=== PATIENT | male | born 1965 | race Caucasian/White ===

== ENCOUNTER 2016-05-03 12:14 | Emergency (ER) | payer OTHER ==
--- NOTE | 2016-05-03 15:12 | RAD ---
FOOT RIGHT 3 VIEWS COMPARISON: None HISTORY: Patient tripped over 72 weeks ago, with persistent pain in the right foot. Initial encounter. FINDINGS: Views: Right foot dorsoplantar, medial oblique, lateral. Bones: Normal. Joints: Normal. Soft tissues: Normal. IMPRESSION: Normal study. No fracture.
--- NOTE | 2016-05-03 15:12 | RAD ---
ANKLE-RIGHT 3 VIEW COMPARISON: None HISTORY: Right ankle pain that started 2 weeks ago due to an injury twisted his ankle. Initial encounter. FINDINGS Views: Right ankle AP, mortise, lateral. Bones: Normal variant of a large posterior process of the talus, without fracture. Joints: Normal Soft tissues: Moderate lateral soft tissue swelling. IMPRESSION: 1. Lateral soft tissue swelling. No fracture.
== END 2016-05-03 17:04 | disposition left against medical advice (07) ==
LOC: ED 12:14
DX: L03.115 Cellulitis of right lower limb (principal)

== ENCOUNTER 2016-05-11 18:40 | Inpatient (IN) | payer OTHER ==
[2016-05-11] MEDS ORDERED: SODIUM CHLORIDE 0.9% 1,000 ML ONE ×2 (20:30→21:51)
[2016-05-11 20:32] LABS: ABSOLUTE NEUTROPHIL COUNT 23.2 K/mm3 (1.8-7.7); BASO # 0.1 K/mm3 (0.0-0.2); BASO % 0.3 % (0.2-1.0); HEMOGLOBIN 13.1 gm/l (14.0-18.0); IMM NEUT # 0.3 K/mm3 (0-0.2); LYMPH # 1.6 (1.0-4.8); LYMPH % 5.9 % (15-45); MEAN CELL VOLUME 93.9 fl (80.0-94.0); MEAN CORPUSCULAR HEMOGLOBIN 30.8 pg (27.0-31.0); MEAN CORPUSCULAR HGB CONC 32.8 g/dl (33.0-37.0); MEAN PLATELET VOLUME 10.1 fl (7.4-10.4); MONO # 1.6 (0.0-0.8); NEUT % 86.8 % (43-75); PLATELET COUNT 506 K/mm3 (130-400); RED CELL DISTRIBUTION WIDTH 12.5 % (11.5-14.5)
[2016-05-11] MEDS ORDERED: PIPERACILLIN-TAZO PREMIX BAG 50 ML IV ONE (20:33)
[2016-05-11] MEDS ORDERED: TETANUS,DIPHTHERIA TOXOID SYRINGE IM V ONE (20:33)
[2016-05-11] MEDS ORDERED: INSULIN REGULAR HUMAN (DOSE) 100 UNITS/1 ML ONE ×2 (20:33→21:52)
[2016-05-11 20:50] LABS: ALB/GLOB RATIO 0.5 (>1.0); ALBUMIN 2.5 gm/dL (3.5-5.7); CALCIUM 9.1 mg/dL (8.6-10.3)
[2016-05-11 21:06] LABS: C-REACTIVE PROTEIN 12.1 mg/dl (<1.0)
[2016-05-11] MEDS ORDERED: VANCOMYCIN HCL 2 G in SODIUM CHLORIDE 0.9% 500 ML IV ONE (21:15)
[2016-05-11 21:34] LABS: ACETONE,SERUM NEGATIVE (NEGATIVE)
--- NOTE | 2016-05-11 21:37 | RAD ---
Name: SHAILESH DUNCAN Exam: Right foot Comparison: 05/03/2016 Clinical history: Right foot infection Findings: 3 views right foot are submitted. There is posttraumatic deformity of the proximal phalanx of the right great toe similar to the prior. There is no acute fracture, dislocation, periosteal fracture foreign body. There is mild calcaneal spurring at the insertion site of plantar fascia. There is diffuse swelling of the foot particularly on the plantar surface but to a lesser extent over the dorsum of the foot. The soft tissue swelling has progressed from the prior exam. Impression: 1. Diffuse soft tissue swelling in foot with worsening from exam dated 05/03/2016 2. Old fracture of the right great toe 3. No new/acute bony abnormality
[2016-05-11 22:15] LABS: URINE BILIRUBIN NEGATIVE (NEGATIVE); URINE BLOOD NEGATIVE (NEGATIVE); URINE COLOR LIGHT YELLOW; URINE GLUCOSE (UA) 3+ (NEGATIVE); URINE LEUKOCYTE ESTERASE NEGATIVE (NEGATIVE); URINE NITRITE NEGATIVE (NEGATIVE); URINE PROTEIN NEGATIVE (NEGATIVE); URINE UROBILINOGEN NORMAL (0-1 mg/dl)
[2016-05-11 22:16] LABS: URINE APPEARANCE CLEAR
[2016-05-11 22:20] LABS: ATYPICAL LYMPHOCYTE 2 %; BAND 5 % (0-10); BASOPHIL 0 % (0-1); EOSINOPHIL 0 % (1-3); LYMPHOCYTE 4 % (15-45); MONOCYTE 2 % (4-12); NEUTROPHILS 87 % (43-75); TOTAL CELLS COUNTED 100
[2016-05-11 22:21] LABS: PLATELET ESTIMATE INCREASED (NORMAL)
[2016-05-11] MEDS ORDERED: MAGNESIUM HYDROXIDE 30 ML UDCUP PO PRN (22:39)
[2016-05-11] MEDS ORDERED: BISACODYL 10 MG SUP PR PRN (22:39)
[2016-05-11] MEDS ORDERED: BISACODYL 5 MG TABLET.EC PO PRN (22:39)
[2016-05-11] MEDS ORDERED: ACETAMINOPHEN 325 MG TABLET PO PRN (22:39)
[2016-05-11] MEDS ORDERED: MENTHOL/CETYLPYRD 1 EACH LOZENGE PO PRN (22:39)
[2016-05-11] MEDS ORDERED: NS/Potassium Chlor 20 mEq 1,000 ML IV SCH (22:39)
[2016-05-11] MEDS ORDERED: INSULIN ASPART (DOSE) 100 UNITS/1 ML SUB-Q PRN (22:39)
[2016-05-11] MEDS ORDERED: BLISTEX LIPSTICK 1 EACH TP PRN (22:39)
[2016-05-11] MEDS ORDERED: INSULIN ASPART (DOSE) 100 UNITS/1 ML SUB-Q ONE ×2 (23:02→23:37)
[2016-05-12] MEDS ORDERED: NS/Potassium Chlor 20 mEq 1,000 ML IV SCH (00:18)
[2016-05-12 01:35] LABS: CALCIUM 8.3 mg/dL (8.6-10.3)
[2016-05-12] MEDS ORDERED: INSULIN ASPART (DOSE) 100 UNITS/1 ML SUB-Q ONE (01:41)
[2016-05-12] MEDS: POTASSIUM CHLORIDE 10MEQ/100ML 100 ML IV SCH ×2 (02:26→05:12)
[2016-05-12] MEDS: NS/Potassium Chlor 20 mEq 1,000 ML IV SCH ×3 (02:27→14:22)
[2016-05-12] MEDS ORDERED: PIPERACILLIN SODIUM/TAZOBACTAM 3.375 G VIAL IV ONE ×2 (03:06→04:54)
[2016-05-12] MEDS ORDERED: SODIUM CHLORIDE 0.9% 50 ML IV ONE (04:53)
[2016-05-12] MEDS ORDERED: SODIUM CHLORIDE 0.9% FLUSH 10 ML ONE (04:55)
[2016-05-12] MEDS ORDERED: IV START KIT ONE (04:56)
[2016-05-12] MEDS ORDERED: PUMP TUBING ONE (04:59)
[2016-05-12] MEDS: NS 0.9% IV SCH ×2 (05:23→12:08)
[2016-05-12] MEDS: PIPERACILLIN TAZO IV SCH ×2 (05:23→12:08)
[2016-05-12] MEDS: SODIUM CHLORIDE 0.9% 100 ML IV PRN ×2 (05:25→19:09)
[2016-05-12] MEDS ORDERED: HYDROMORPHONE HCL 0.5 MG/0.5 ML SYRINGE IV PRN ×2 (05:40→07:41)
[2016-05-12] MEDS: PIPERACILLIN-TAZO PREMIX BAG 3.375 G in Premix (D5W) 50 ml 1 EACH IV SCH ×3 (05:42→19:06)
[2016-05-12] MEDS ORDERED: INSULIN ASPART (DOSE) 100 UNITS/1 ML SUB-Q SCH ×2 (06:00→12:00)
[2016-05-12] MEDS ORDERED: LACTATED RINGERS 1,000 ML ONE ×2 (07:19→10:49)
[2016-05-12] MEDS ORDERED: PRIMARY W/MICRODRIP 60 DROPS/ML ONE (07:20)
[2016-05-12 07:24] LABS: ABSOLUTE NEUTROPHIL COUNT 19.5 K/mm3 (1.8-7.7); BASO # 0.1 K/mm3 (0.0-0.2); BASO % 0.5 % (0.2-1.0); EOS # 0.2 (0.0-0.5); EOS % 0.7 % (0.9-2.9); HEMATOCRIT 34.6 % (32.0-52.0); HEMOGLOBIN 11.8 gm/l (14.0-18.0); IMM NEUT # 0.2 K/mm3 (0-0.2); IMM NEUT% 0.7 % (0-1); LYMPH # 2.6 (1.0-4.8); LYMPH % 10.5 % (15-45); MEAN CELL VOLUME 90.3 fl (80.0-94.0); MEAN CORPUSCULAR HEMOGLOBIN 30.8 pg (27.0-31.0); MEAN CORPUSCULAR HGB CONC 34.1 g/dl (33.0-37.0); MEAN PLATELET VOLUME 9.5 fl (7.4-10.4); MONO # 1.7 (0.0-0.8); MONO % 6.9 % (4-12); NEUT % 80.7 % (43-75); PLATELET COUNT 441 K/mm3 (130-400); RED CELL DISTRIBUTION WIDTH 11.9 % (11.5-14.5)
[2016-05-12 07:34] LABS: CALCIUM 8.6 mg/dL (8.6-10.3); MAGNESIUM 1.7 mg/dL (1.9-2.7)
[2016-05-12] MEDS ORDERED: HYDROMORPHONE HCL 1 MG/ML SYRINGE IV PRN (07:42)
[2016-05-12 07:57] LABS: BAND 3 % (0-10); BASOPHIL 0 % (0-1); EOSINOPHIL 1 % (1-3); LYMPHOCYTE 12 % (15-45); MONOCYTE 2 % (4-12); NEUTROPHILS 82 % (43-75); PLATELET ESTIMATE INCREASED (NORMAL); TOTAL CELLS COUNTED 100
[2016-05-12] MEDS ORDERED: MAGNESIUM SULFATE 2 G/50 ML 2 G in Premix (Water) 50 ml 1 EACH IV ONE ×2 (08:15→12:30)
[2016-05-12] MEDS ORDERED: PROPOFOL 20 ML IV ONE (08:43)
[2016-05-12] MEDS ORDERED: SUCCINYLCHOLINE CHL 20 MG/ML DOSE ONE (08:43)
[2016-05-12] MEDS ORDERED: MIDAZOLAM HCL 1 MG/ML 2ML VIAL ONE (08:43)
[2016-05-12] MEDS ORDERED: FENTANYL 100 MCG/2 ML VIAL ONE ×3 (08:44→11:22)
--- NOTE | 2016-05-12 08:52 | HP ---
SHAILESH DUNCAN [id number] DATE OF ADMISSION: May 11, 2016 CHIEF COMPLAINT: Right foot infection. HISTORY OF PRESENT ILLNESS: The patient is a 50-year-old male who has not had any medical care for the last ten years, who presents to the [facility] Department with a two week history of worsening right foot infection. He has been reluctant to seek medical attention. He was first brought in on May 03, 2016, but left without being seen. His sisters convinced him to come in and coerced him to be evaluated by the emergency department today. He has had symptoms of polyuria and polydipsia going on for several years he states. The right foot infection started with a cracked skin from a callus at the base of the first metatarsal. He developed redness, ulcerations and vesicle formation over the bottom of the foot and redness which has progressed up past the ankle some time in the last week and a half. He has had low-grade fevers. REVIEW OF SYSTEMS: Is significant for low-grade fevers, but he denies any upper respiratory symptoms, cough, dyspnea, chest pain, shortness of breath, or palpitations. He denies complaints of nausea, vomiting, abdominal pain, diarrhea or constipation. He denies any significant pain in his foot despite the extensive infection. He has some chronic burning pain in both feet which has been ongoing for a while. He denies any headaches, fainting, blackouts or seizures. He has had the polyuria and polydipsia for several years. PAST MEDICAL HISTORY: He denies any chronic medical problems. He used to be a patient of Dr. Rouse. When he heard Dr. Rouse was retiring about ten years ago, he stopped going to him and has not seen a doctor since. He was not aware that Dr. Rouse never retired. PAST SURGICAL HISTORY: Significant for: 1. A right inguinal hernia repair at the age of 10. 2. 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 This occurred about four or five years ago he states. 3. He denies any other surgical history. ALLERGIES: NO KNOWN DRUG ALLERGIES. CURRENT MEDICATIONS: None. FAMILY HISTORY: Both parents had diabetes and a brother had diabetes. SOCIAL HISTORY: He is . He has no children. He is living on food stamps and staying on property owned by his sister and maintains the property as compensation for allowing him to stay there. He has smoked about 1/4 to 1/2 pack of cigarettes since he was 10 equaling about a 20 pack-year history of smoking. He denies alcohol or illicit drug use. PHYSICAL EXAMINATION: VITAL SIGNS: Temperature is 98.5, pulse 109, blood pressure 152/101, respirations 20, oxygen saturations are 100% on room air. Body mass index is 25.3. Weight is 82.4 kilograms. GENERAL: This is a well-developed, well-nourished male in no acute distress. HEENT: Shows pupils equal, round and reactive to light. Extraocular movements are intact. Oropharynx shows dry oral mucosa with poor dentition. NECK: Is supple without lymphadenopathy or thyromegaly. CHEST: Lungs are clear to auscultation bilaterally. CARDIOVASCULAR: Exam reveals a regular tachycardia without a murmur. ABDOMEN: Soft, nontender, nondistended with positive bowel sounds. GENITOURINARY: Exam is deferred. RECTAL: Exam is deferred. EXTREMITIES: Show trace edema in the right foot with diffuse erythema involving the right foot progressing fpc up the lower leg with extensive bullous changes involving the bottom of the right foot and ulcerations present as well in numerous areas with necrotic tissue visible as well. No bone is exposed. No foul smell is noted. He has 2+ dorsalis pedis pulse on both feet. He has extensive callus formation on the bottom of both feet with some fissuring of the skin at the base of the right first metatarsophalangeal joint and on the left foot he has a fissure at the base of the left first distal phalanx. DIAGNOSTIC IMAGING STUDIES: Plain films show diffuse soft tissue swelling of the right foot, old fracture of the right first toe. No acute bony abnormality is seen. LABORATORY STUDIES: CBC with a white count elevated at 26,800, hemoglobin is 13.1, platelet count slightly elevated at 506,000, lactate is elevated at 3.1. Chemistry profile shows a sodium of 116, potassium 4.7, carbon dioxide 28, anion gap 14, BUN 28, creatinine is 1.3, glucose is 1128. Liver function tests are normal. Cardiac enzymes are negative. C-reactive protein elevated at 12.1. Erythrocyte sedimentation rate is elevated at 100. Urine shows 3+ glucose, no ketones, and is otherwise unremarkable. Serum acetone is negative. ASSESSMENT: 1. Patient has severe diabetic right foot infection likely polymicrobial with cellulitis extending up the leg. He meets criteria for severe sepsis with a lactic acidosis, severe leukocytosis, thrombocytosis, and tachycardia. 2. He has evidence of uncontrolled diabetes complicated by diabetic neuropathy with a component of pseudohyponatremia as well as some hyponatremia as well. PLAN: 1. He is admitted to the medical/surgical unit and received 10 units of IV insulin in the emergency department. I think I can correct him with subcutaneous insulin every two hours given the fact that he has a normal serum carbon dioxide and normal anion gap. 2. He will get NovoLog insulin every two hours following a moderate sliding scale until his blood sugar is less than 250. 3. He will be given saline with some potassium as I expect his potassium to drop with correction of his hyperglycemia. 4. I am going to get a followup basic metabolic panel four hours after the last and a lactate four hours after the last draw. 5. For his infection, he is going to be covered with Zosyn and vancomycin. 6. He has been made nothing by mouth after midnight. Dr. Naveen Bejarano has been consulted and anticipates taking him to the operating room the morning of May 12, 2016. 7. Venous thromboembolism risk is moderate but I am going to use mechanical measures for now for prophylaxis due to the anticipated surgery in the morning. 8. He will also be aggressively hydrated. 9. Further treatment and recommendations will depend on his hospital course.
--- NOTE | 2016-05-12 09:41 | CONS ---
SHAILESH DUNCAN : 1965 [id number] CONSULTATION DATE OF ADMISSION: May 11, 2016 CHIEF COMPLAINT: Right foot infection. HISTORY OF PRESENT ILLNESS: This is a 50-year-old male who has just presented to the emergency department with a new diagnosis of diabetes and a blood sugar of 1100 who has extensive necrotic tissue and infection over his right foot. He was admitted by the hospitalist service and orthopedics was consulted to evaluate and treat. Patient complains of some pain in his foot but really limited sensation and pain. He states that this has been going on for a long time and just has been getting worse and worse. He has no other previous episodes of similar complaints. He is not feeling particularly well at this point. He denies any discrete trauma to that foot. PAST MEDICAL HISTORY: As documented in the History and Physical performed by the hospitalist. PAST SURGICAL HISTORY: As documented in the History and Physical performed by the hospitalist. REVIEW OF SYSTEMS: His review of systems today is negative for any cardiovascular or respiratory complaints. PHYSICAL EXAMINATION: GENERAL: This is a somewhat ill appearing gentleman in no acute distress. He is awake, alert and conversant throughout the encounter. HEENT: He is normocephalic, atraumatic. His extraocular movements are intact. LUNGS: His lungs are inflating equally. EXTREMITIES: He has palpable pulses in his bilateral upper extremities. His right foot shows extensive areas of eschar, erythema and open wounds with some evidence of purulence including appearance of a couple of possible covered abscesses. There are no palpable pulses in the foot, but it is warm. He has erythema that advances about six inches up his leg toward the knee. He has minimal tenderness throughout this foot. There are just a couple of small areas that he seems to wince a little bit but largely does not appear to have particularly good protective sensation over the foot. DIAGNOSTIC IMAGING: A review of his x-rays shows no significant new fractures or dislocations. He has some posttraumatic arthrosis of his right great toe, previous fracture with a malunion at his interphalangeal joint on that great toe. He has extensive soft tissue swelling but no areas of bony destruction that would be suggestive of osteomyelitis or another process like that. ASSESSMENT: A 50-year-old gentleman with right foot soft tissue infection primarily with wildly uncontrolled diabetes that is now being addressed and significant amount of necrotic tissue. PLAN: Plan will be for just a simple debridement today with no plans for any bony resection. We need a chance to further evaluate whether this patient has appropriate vascularity and the ability to heal from resection or whether there is actually any deep involvement or if this is all just relatively superficial. So we will do a debridement today and then start working on getting some vascular studies to evaluate for his ability to heal up from a more definitive procedure. In the meantime, he will be on IV antibiotics, and he will be seeing wound care with [facility] and hopefully this can be managed as an outpatient after his initial procedure.
[2016-05-12] MEDS ORDERED: ONDANSETRON 4 MG/2ML 2 ML VIAL IV PRN (10:07)
[2016-05-12] MEDS ORDERED: PROMETHAZINE HCL 25 MG/ML VIAL IM PRN (10:07)
[2016-05-12] MEDS ORDERED: NALOXONE HCL 0.4 MG/ML VIAL IV PRN (10:07)
[2016-05-12] MEDS ORDERED: ATROPINE SULFATE 0.4 MG/1 ML VIAL IV PRN (10:07)
[2016-05-12] MEDS ORDERED: MEPERIDINE 25 MG/ML SYRINGE IV PRN (10:07)
[2016-05-12] MEDS ORDERED: LACTATED RINGERS 1,000 ML IV SCH (10:15)
[2016-05-12] MEDS ORDERED: HYDROMORPHONE HCL 1 MG/ML SYRINGE ONE (11:01)
--- NOTE | 2016-05-12 11:02 | PCMBPN ---
Brief Post Op Note: Date of Procedure: 05/12/16 Start Time: 1000 Preoperative Diagnosis: 1. right diabetic foot infection Postoperative Diagnosis: 1. Same Procedure: right foot irrigation and debridement Surgeon: Naveen Bejarano MD Assist: none Anesthesia: Zeny Everett Findings: multiple areas of necrotic tissue with multiple purulent abscesses; large full-thickness soft tissue loss around heel Condition: stable to PACU Complications: none IV Fluids: 1000 mLs of LR Urine Output: 0 mLs Estimated Blood Loss: 50 mLs Tourniquet Time: none Specimens: culture swabs from medial heel wound Implants: none Drains: none Naveen Bejarano MD
[2016-05-12] MEDS: FENTANYL 100 MCG/2 ML VIAL IV PRN ×3 (11:05→11:24)
[2016-05-12] MEDS: DOCUSATE SODIUM 100 MG CAPSULE PO SCH ×2 (11:09→21:26)
[2016-05-12] MEDS: HYDROMORPHONE HCL 1 MG/ML SYRINGE IV PRN ×2 (11:15→11:20)
[2016-05-12] MEDS: INSULIN ASPART (DOSE) 100 UNITS/1 ML SUB-Q SCH ×5 (12:28→21:29)
--- NOTE | 2016-05-12 12:34 | PDOC43 ---
- Subjective Chief Complaint: Right foot infection Waking up from surgery. Denies pain in right foot. Hungry and thirsty. - Objective Vital Signs Temperature 97.4 F 05/12/16 08:29 Pulse Rate 102 05/12/16 08:29 Respiratory Rate 20 05/12/16 08:29 Blood Pressure 135/87 05/12/16 08:29 O2 Saturation by Pulse Oximetry 97 05/12/16 08:29 Oxygen Delivery Method Room Air Oxygen Flow Rate 0 Intake and Output 05/11/16 05/12/16 05/13/16 06:59 06:59 06:59 Intake Total 1437 Output Total 1250 Balance 187 General: Alert, Cooperative, No Acute Distress HEENT: Mucous membr. moist/pink Lungs: Clear to Auscultation Bilaterally Cardiovascular: Regular Rate and Rhythm Abdomen: Soft, Normal Bowel Sounds, No Tenderness, No Masses Extremities: Normal Cap Refill, Normal Pulses, Other (Right calf and foot dressed and wraped with Eugene bandage.), No Edema Skin: Normal Color Neurological: Normal Speech Psych/Mental Status: Flat Affect Laboratory 05/12/16 07:05 05/12/16 07:05 05/12/16 05/12/16 05/12/16 11:51 11:00 07:05 RBC 3.83 L VBG Lactate Anion Gap BUN POC Capillary Glucose 197 H 207 H Calcium Magnesium 1.7 L 05/12/16 05/12/16 05/11/16 06:09 01:05 21:35 RBC VBG Lactate 3.1 H Anion Gap 6 L BUN 27 H POC Capillary Glucose 109 H Calcium 8.3 L Magnesium Current Medications: Current meds reviewed in EMR. - Problems: Assessment/Plan (1) Cellulitis Qualifiers: Site of cellulitis of extremity: lower extremity Laterality: right Status: Acute Assessment/Plan: Diabetic foot infection with cellulitis and lymphangitis present on admit, now post debriedment by Dr. Bejarano. Continue antibiotic treatment with Zosyn and Vancomycin. [place] for salvage of the foot is poor with likely future amputation anticipated. (2) Sepsis Status: Acute Assessment/Plan: With lactic acidosis and hyperglycemia secondary to foot infection and cellulitis. Improved, continue antibiotics as above. 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 Out of control with severe hyperglycemia and pseudohyponatremia but not acidosis on admit. Start basal and bolus insulin treatment, check A1c. RD consult for DM education. (4) Anemia Status: Acute Assessment/Plan: Mild on admit, worse with hydration, w/u for underlying cause. (5) Hypomagnesemia Status: Acute Assessment/Plan: Has been replaced, recheck in a.m. (6) Diabetic neuropathy Qualifiers: Diabetes mellitus type: type 2 Diabetes mellitus complication detail: diabetic polyneuropathy Qualifier Code: (E11.42) Type 2 diabetes mellitus with diabetic polyneuropathy Status: Chronic Assessment/Plan: Resulting in loss of sensation in feet allowing him to ignore the infection. (7) Nicotine dependence Qualifiers: Nicotine product type: cigarettes Status: Chronic Assessment/Plan: Declines nicotine replacement. VTE Prophylaxis: Start enoxaparin now that he is post-op.
[2016-05-12] MEDS: HYDROCODONE/ACETAMINOPHEN 5/325MG TABLET PO PRN (12:59)
[2016-05-12] MEDS: ENOXAPARIN SODIUM 40 MG/0.4 ML SYRINGE SUB-Q SCH (12:59)
[2016-05-12] MEDS ORDERED: VANCOMYCIN HCL 1 G in SODIUM CHLORIDE 0.9% 250 ML IV SCH (16:00)
[2016-05-12] MEDS ORDERED: VANCOMYCIN HCL 2 G in SODIUM CHLORIDE 0.9% 500 ML IV ONE (16:30)
--- NOTE | 2016-05-12 18:44 | PDOC43 ---
- Subjective Findings: Patient tolerated procedure well, readmitted to floor postop with hospitalist as primary. No new complaints, pain controlled. Subjective: Reports Pain Tolerable, Denies Chest Pain, Denies Shortness of Breath, Denies Nausea, Denies Vomiting, Denies Fever - Objective Vital Signs Temperature 97.4 F 05/12/16 11:40 Pulse Rate 101 05/12/16 16:00 Respiratory Rate 20 05/12/16 13:55 Blood Pressure 121/80 05/12/16 16:00 O2 Saturation by Pulse Oximetry 99 05/12/16 16:00 Oxygen Delivery Method Nasal Cannula Oxygen Flow Rate 2 Laboratory 05/12/16 07:05 05/12/16 07:05 05/12/16 05/12/16 05/12/16 16:20 11:51 11:00 RBC VBG Lactate Anion Gap BUN POC Capillary Glucose 223 H 197 H 207 H Calcium Magnesium 05/12/16 05/12/16 05/12/16 07:05 06:09 01:05 RBC 3.83 L VBG Lactate Anion Gap 6 L BUN 27 H POC Capillary Glucose 109 H Calcium 8.3 L Magnesium 1.7 L 05/11/16 21:35 RBC VBG Lactate 3.1 H Anion Gap BUN POC Capillary Glucose Calcium Magnesium Active Medication Orders Category Date Time Status Enoxaparin Sodium [Lovenox] Med 05/12/16 12:45 Active 40 mg SUB-Q Q24H Hydrocodone Bit/Acetaminophen [[place] 5/325] Med 05/11/16 22:39 Active 1 - 2 tab PO Q4H PRN Hydromorphone HCl [Dilaudid] Med 05/12/16 07:41 Active 0.5 - 1 mg IV Q2H PRN Hydromorphone HCl [Dilaudid] Med 05/12/16 07:42 Active 0.5 - 1 mg IV Q2H PRN Insulin Aspart (Dose) [Novolog (Dose)] Med 05/12/16 13:00 Active 5 units SUB-Q TIDWM Insulin Aspart (Dose) [Novolog (Dose)] Med 05/12/16 13:00 Active See Protocol SUB-Q WM/BEDTIME Insulin Glargine (Dose) [Lantus (Dose)] Med 05/12/16 21:00 Active 10 units SUB-Q Q24H Piperacillin-Tazo Premix Bag [Zosyn 3.375 G] 3.375 g Med 05/12/16 03:00 Active Premix (D5W) 50 ml 1 each IV Q6H Sodium Chloride 0.9% Flush [Normal Saline 10ml Flush] Med 05/12/16 01:00 Active 10 ml IV Q8HR Vancomycin HCl 1.5 g Med 05/13/16 04:30 Active Sodium Chloride 0.9% 500 ml IV Q12H Vancomycin HCl 2 g Med 05/12/16 16:30 Active Sodium Chloride 0.9% 500 ml IV X1 Intake and Output 05/10/16 05/11/16 05/12/16 23:59 23:59 23:59 Intake Total 1437 Output Total 1250 Balance 187 General: Afebrile HEENT: EOMI Lungs: Normal Air Movement Abdomen: Soft, No Tenderness Skin: Normal Color, Warm, Dry Neurological: Grossly Intact, Alert, Oriented x 4 - Right Lower Extremity Incision: Drainage Gross Sensation to Light Touch: Present: Deep Peroneal Nerve (decreased sensation globally about the foot) - Problems (1) Abscess of foot Status: Acute Assessment/Plan: DOS for I&D of right foot with multiple abscesses 1. Physical Therapy: NWB RLE 2. Pain Control: as prescribed by hospitalist 3. DVT Prophylaxis: per hospitalist 4. Disposition: will discuss with patient and hospitalist; would recommend vascular evaluation to determine the level at which patient could heal an amputation; no urgency for amputation, but patient has some social challenges which may affect timing of definitive care. 5. Medical Issues: newly diagnosed diabetes, control adequate on sliding scale insulin. Patient has not had significant medical care over last 7 years. Hospitalist primary. Naveen Bejarano MD
[2016-05-12] MEDS ORDERED: INSULIN GLARGINE (DOSE) 100 UNITS/ML UNIT SUB-Q SCH (21:00)
[2016-05-13] MEDS: PIPERACILLIN-TAZO PREMIX BAG 3.375 G in Premix (D5W) 50 ml 1 EACH IV SCH ×3 (00:03→11:25)
[2016-05-13] MEDS ORDERED: VANCOMYCIN HCL 1 G/20 ML VIAL ONE ×3 (01:19→04:12)
[2016-05-13] MEDS ORDERED: SODIUM CHLORIDE 0.9% 500 ML ONE (01:20)
[2016-05-13] MEDS: SODIUM CHLORIDE 0.9% 100 ML IV PRN (04:05)
[2016-05-13] MEDS: VANCOMYCIN HCL 1.5 G in SODIUM CHLORIDE 0.9% 500 ML IV SCH ×2 (04:06→04:16)
[2016-05-13] MEDS: HYDROCODONE/ACETAMINOPHEN 5/325MG TABLET PO PRN ×2 (04:50→11:24)
[2016-05-13 06:10] LABS: ABSOLUTE NEUTROPHIL COUNT 19.6 K/mm3 (1.8-7.7); BASO # 0.1 K/mm3 (0.0-0.2); BASO % 0.3 % (0.2-1.0); EOS # 0.3 (0.0-0.5); EOS % 1.2 % (0.9-2.9); HEMATOCRIT 33.1 % (32.0-52.0); HEMOGLOBIN 11.1 gm/l (14.0-18.0); IMM NEUT # 0.2 K/mm3 (0-0.2); IMM NEUT% 0.8 % (0-1); LYMPH # 3.6 (1.0-4.8); LYMPH % 14.2 % (15-45); MEAN CELL VOLUME 91.7 fl (80.0-94.0); MEAN CORPUSCULAR HEMOGLOBIN 30.7 pg (27.0-31.0); MEAN CORPUSCULAR HGB CONC 33.5 g/dl (33.0-37.0); MEAN PLATELET VOLUME 9.5 fl (7.4-10.4); MONO # 1.5 (0.0-0.8); NEUT % 77.5 % (43-75); PLATELET COUNT 424 K/mm3 (130-400); RED CELL DISTRIBUTION WIDTH 12.6 % (11.5-14.5)
[2016-05-13 06:32] LABS: FERRITIN 788.9 ng/mL (23.9-336.2)
[2016-05-13 06:34] LABS: FOLIC ACID 4.1 ng/mL (>5.9)
[2016-05-13 06:35] LABS: CALCIUM 9.1 mg/dL (8.6-10.3); MAGNESIUM 1.5 mg/dL (1.9-2.7)
[2016-05-13 07:43] LABS: NEUTROPHILS 79 % (43-75); TOTAL CELLS COUNTED 100
[2016-05-13 07:44] LABS: BAND 1 % (0-10); BASOPHIL 0 % (0-1); EOSINOPHIL 2 % (1-3); LYMPHOCYTE 13 % (15-45); MONOCYTE 5 % (4-12); PLATELET ESTIMATE NORMAL (NORMAL)
[2016-05-13] MEDS: DOCUSATE SODIUM 100 MG CAPSULE PO SCH (08:08)
[2016-05-13] MEDS: INSULIN ASPART (DOSE) 100 UNITS/1 ML SUB-Q SCH ×7 (08:09→16:34)
[2016-05-13 09:40] LABS: A1C-GLYCOHEMOGLOBIN 1.5 g/dl; HEMOGLOBIN-GLYCO 10.9 g/dl
[2016-05-13] MEDS ORDERED: MAGNESIUM SULFATE 2 G/50 ML 2 G in Premix (Water) 50 ml 1 EACH IV ONE (10:38)
[2016-05-13] MEDS ORDERED: INSULIN GLARGINE (DOSE) 100 UNITS/ML UNIT SUB-Q SCH (10:42)
[2016-05-13] MEDS ORDERED: FERROUS SULFATE (65 Fe) 325 MG TABLET PO SCH (10:45)
[2016-05-13] MEDS ORDERED: FOLIC ACID 1 MG TABLET PO SCH (10:45)
[2016-05-13] MEDS ORDERED: ASCORBIC ACID 250 MG TABLET PO SCH (10:45)
--- NOTE | 2016-05-13 10:45 | PDOC43 ---
- Subjective Chief Complaint: Right foot infection Eating well, no complaints. Agreeable to transfer to vascular surgery. - Objective Vital Signs Temperature 98.0 F 05/13/16 08:38 Pulse Rate 88 05/13/16 08:38 Respiratory Rate 18 05/13/16 08:38 Blood Pressure 128/74 05/13/16 08:38 O2 Saturation by Pulse Oximetry 99 05/13/16 08:38 Oxygen Delivery Method Room Air Oxygen Flow Rate 0 Intake and Output 05/12/16 05/13/16 05/14/16 06:59 06:59 06:59 Intake Total 1437 4528 Output Total 1250 1920 Balance 187 2608 General: Alert, Oriented x3, Cooperative, No Acute Distress HEENT: Mucous membr. moist/pink Lungs: Clear to Auscultation Bilaterally Cardiovascular: Regular Rate and Rhythm Abdomen: Soft, Normal Bowel Sounds, No Tenderness, No Masses Extremities: Normal Pulses (on left), No Edema Wound: Dressing Clean/Dry/Intact (on right foot and calf. Toes pink with 3-4 sec cap refill) Neurological: Normal Speech Psych/Mental Status: Normal Mood Laboratory 05/13/16 05:30 05/13/16 05:30 05/13/16 05/13/16 05/12/16 07:27 05:30 21:13 RBC 3.61 L Anion Gap 6 L POC Capillary Glucose 226 H 178 H Hemoglobin A1c Magnesium 1.5 L Iron Ferritin Folic Acid 05/12/16 05/12/16 05/12/16 16:20 11:51 11:00 RBC Anion Gap POC Capillary Glucose 223 H 197 H 207 H Hemoglobin A1c Magnesium Iron Ferritin Folic Acid 05/12/16 05/12/16 05:30 01:05 RBC Anion Gap POC Capillary Glucose Hemoglobin A1c 14.4 H Magnesium Iron < 15 L Ferritin 788.9 H Folic Acid 4.1 L Current Medications: Current meds reviewed in EMR. - Problems: Assessment/Plan (1) Cellulitis Qualifiers: Site of cellulitis of extremity: lower extremity Laterality: right Status: Acute Assessment/Plan: Diabetic foot infection with cellulitis and lymphangitis present on admit due to MRSA, now post debriedment by Dr. Bejarano. Continue antibiotic treatment with Zosyn and Vancomycin. [place] for salvage of the foot is poor with likely future amputation anticipated. Transfer to vascular surgery per Dr. Bejarano for optimal outcome. (2) Sepsis Qualifiers: Sepsis type: methicillin resistant Staphylococcus aureus Qualifier Code : (A41.02) Sepsis due to Methicillin resistant Staphylococcus aureus Status : Acute Assessment/Plan: Severe sepsis with lactic acidosis and hyperglycemia secondary to foot infection and cellulitis with MRSA. Improved, continue antibiotics as above. (3) Diabetes type 2, uncontrolled Qualifiers: Diabetes mellitus complication status: with hyperglycemia Diabetes mellitus long-term insulin use: without executive sous chef use Qualifier Code: ( E11.65) Type 2 diabetes mellitus with hyperglycemia Status: Chronic Assessment/Plan: Has had symptoms of DM for years with peripheral neuropathy but has not sought treatment. Out of control with severe hyperglycemia and pseudohyponatremia but not acidosis on admit. Started basal and bolus insulin treatment, A1c 14.4% (4) Anemia Qualifiers: Anemia type: iron deficiency Iron deficiency anemia type: unspecified iron deficiency Qualifier Code: (D50.9) Iron deficiency anemia, unspecified Status: Acute Assessment/Plan: Mild on admit, worse with hydration. Labs indicate iron and folate deficiency. (5) Hypomagnesemia Status: Acute Assessment/Plan: Repeat replacement. (6) Diabetic neuropathy Qualifiers: Diabetes mellitus type: type 2 Diabetes mellitus complication detail: diabetic polyneuropathy Qualifier Code: (E11.42) Type 2 diabetes mellitus with diabetic polyneuropathy Status: Chronic Assessment/Plan: Resulting in loss of sensation in feet allowing him to ignore the infection. (7) Nicotine dependence Qualifiers: Nicotine product type: cigarettes Status: Chronic Assessment/Plan: Declines nicotine replacement. VTE Prophylaxis: Enoxaparin Disposition: Transfer to vascular surgery at [facility].
[2016-05-13] MEDS ORDERED: SODIUM CHLORIDE IRRIG IR PRN (11:01)
--- NOTE | 2016-05-13 11:10 | PDOC43 ---
- Subjective Findings: Pt seen today for Dr. Bejarano. Denies pain at this point. No c/o at this time. He is in the process of being transferred to [facility] for vascular consult and definitive management. Subjective: Reports Flatus, Reports Pain Tolerable, Denies Chest Pain, Denies Shortness of Breath, Denies Nausea, Denies Vomiting, Denies Fever - Objective Vital Signs Temperature 98.0 F 05/13/16 08:38 Pulse Rate 88 05/13/16 08:38 Respiratory Rate 18 05/13/16 08:38 Blood Pressure 128/74 05/13/16 08:38 O2 Saturation by Pulse Oximetry 99 05/13/16 08:38 Oxygen Delivery Method Room Air Oxygen Flow Rate 0 Laboratory 05/13/16 05:30 05/13/16 05:30 05/13/16 05/13/16 05/12/16 07:27 05:30 21:13 RBC 3.61 L Anion Gap 6 L POC Capillary Glucose 226 H 178 H Hemoglobin A1c Magnesium 1.5 L Iron Ferritin Folic Acid 05/12/16 05/12/16 05/12/16 16:20 11:51 11:00 RBC Anion Gap POC Capillary Glucose 223 H 197 H 207 H Hemoglobin A1c Magnesium Iron Ferritin Folic Acid 05/12/16 05/12/16 05:30 01:05 RBC Anion Gap POC Capillary Glucose Hemoglobin A1c 14.4 H Magnesium Iron < 15 L Ferritin 788.9 H Folic Acid 4.1 L Active Medication Orders Category Date Time Status Ascorbic Acid [Vitamin C] Med 05/13/16 10:45 Ordered 250 mg PO DAILY Enoxaparin Sodium [Lovenox] Med 05/12/16 12:45 Active 40 mg SUB-Q Q24H FERROUS SULFATE (65 Fe) [Ferrous Sulfate] Med 05/13/16 10:45 Ordered 325 mg PO DAILY Folic Acid Med 05/13/16 10:45 Ordered 1 mg PO DAILY Hydrocodone Bit/Acetaminophen [[place] 5/325] Med 05/11/16 22:39 Active 1 - 2 tab PO Q4H PRN Hydromorphone HCl [Dilaudid] Med 05/12/16 07:41 Active 0.5 - 1 mg IV Q2H PRN Hydromorphone HCl [Dilaudid] Med 05/12/16 07:42 Active 0.5 - 1 mg IV Q2H PRN Insulin Aspart (Dose) [Novolog (Dose)] Med 05/12/16 13:00 Active 5 units SUB-Q TIDWM Insulin Aspart (Dose) [Novolog (Dose)] Med 05/12/16 13:00 Active See Protocol SUB-Q WM/BEDTIME Insulin Glargine (Dose) [Lantus (Dose)] Med 05/13/16 10:42 Ordered 15 units SUB-Q Q24H Magnesium Sulfate 2 G/50 ml [Magnesium Sulfate] 2 g Med 05/13/16 10:38 Ordered Premix (Water) 50 ml 1 each IV X1 Piperacillin-Tazo Premix Bag [Zosyn 3.375 G] 3.375 g Med 05/12/16 03:00 Active Premix (D5W) 50 ml 1 each IV Q6H Sodium Chloride 0.9% Flush [Normal Saline 10ml Flush] Med 05/12/16 01:00 Active 10 ml IV Q8HR Sodium Chloride 1000 Irrig Bot Med 05/13/16 11:01 Ordered 1,000 ml IR X1 PRN Vancomycin HCl 1.5 g Med 05/13/16 04:30 Active Sodium Chloride 0.9% 500 ml IV Q12H Intake and Output 05/11/16 05/12/16 05/13/16 23:59 23:59 23:59 Intake Total 4088 1877 Output Total 1970 1200 Balance 2118 677 General: Afebrile HEENT: Atraumatic Lungs: Normal Air Movement Abdomen: Soft, Non-Distended Skin: Normal Color Neurological: Alert, Oriented x 4 Psych/Mental Status: Normal Affect, Normal Mood - Right Lower Extremity Incision: Dressing Clean/Dry/Intact Motor: Extensor Hallucis Longus: 4/5, Tibialis Anterior: 4/5, Gastrocnemius: 4/5 , Peroneals: 4/5, Quadriceps: 4/5 Gross Sensation to Light Touch: Present: Deep Peroneal Nerve, Superficial Peroneal Nerve Motion: Calf soft NT Foot is warm but I'm unable to palpate pulses - Problems (1) Abscess of foot Status: Acute Assessment/Plan: Pod#1 for I&D of right foot with multiple abscesses 1. Physical Therapy: NWB RLE 2. Pain Control: as prescribed by hospitalist 3. DVT Prophylaxis: per hospitalist 4. Disposition: Patient will be transferred to [facility] for vascular consult and definitive surgical care. 5. Medical Issues: newly diagnosed diabetes, control adequate on sliding scale insulin. Patient has not had significant medical care over last 7 years. Hospitalist primary. Naveen Bejarano MD
[2016-05-13 11:59] VITALS: BP 102/72
[2016-05-13] MEDS: ENOXAPARIN SODIUM 40 MG/0.4 ML SYRINGE SUB-Q SCH (12:12)
--- NOTE | 2016-05-13 12:12 | TS ---
SHAILESH DESAI [id number] : 1965 DATE OF ADMISSION: May 11, 2016 DATE OF TRANSFER: May 13, 2016 ADMITTING DIAGNOSES: 1. Diabetic foot infection. 2. Severe sepsis with lactic acidosis. 3. Uncontrolled diabetes mellitus. 4. Diabetic neuropathy. DISCHARGE DIAGNOSES: 1. Diabetic foot infection with cellulitis and lymphangitis secondary to methicillin resistant staphylococcus aureus. 2. Severe sepsis with lactic acidosis associated with the diabetic foot infection. 3. Uncontrolled and previously undiagnosed diabetes mellitus type 2. 4. Hyperglycemia with pseudohyponatremia without acidosis at the time of admission. 5. Diabetic neuropathy. 6. Anemia both iron and folate deficiency. 7. Hypomagnesemia. 8. Nicotine dependence. CONSULTATIONS: Dr. Naveen Bejarano on May 12, 2016. PROCEDURES: Right foot irrigation and debridement on May 12, [address] Naveen Bejarano showing multiple areas of necrotic tissue and purulent abscesses with full thickness soft tissue loss around the heel. HISTORY ON ADMISSION: Mr. Desai is a 50-year-old who has not been seen by a medical care provider for at least seven years. He first presented to [facility] Emergency Room on May 03, 2016 due to right foot infection, but did not want to wait and left without being seen on that date. He returned on May 11, 2016 with continued symptoms of right foot infection. The foot was edematous and erythematous with lymphangitis extending up the calf. There were extensive bullous changes, ulceration and area of necrotic tissue. A foul smell was noted. He was also found to be hyperglycemic with a glucose of 1128 and sodium of 116. His CO2 however was 28 and anion gap was 14. He was treated with IV fluids, insulin, vancomycin and Zosyn, and admitted to the hospitalist service. HOSPITAL COURSE: Patient's blood sugar rapidly came under control and since the morning of May 12, 2016 has not been greater than 226. He has been started on basal and bolus insulin protocol. He had orthopedic consultation and debridement of the foot. Because of the complex nature of the wound and unknown status of his vascular system, orthopedics recommends transfer to vascular surgery for workup and optimal planning for his eventual amputation. On May 13, 2016, patient denies any specific complaints and is agreeable to transfer to [facility]. DISCHARGE EXAM: VITAL SIGNS: Temperature 98.0 degrees Fahrenheit, pulse 88, respiratory rate 18, blood pressure 128/74, oxygen saturation 99% on room air. CHEST: Clear. HEART: Regular. ABDOMEN: Soft, nontender. EXTREMITIES: Right foot is dressed and wrapped in [place] wrap. The distal toes are pink with 3 to 4 second capillary refill. Left foot is free of edema and shows good dorsalis pulse. LABORATORY: Wound culture is growing methicillin resistant Staphylococcus aureus. PLAN: 1. Discharge and transport to [facility] in [place]. Dr. Hughes, internal medicine and Dr. Velasquez, vascular surgery, accepting. 2. Current Medication Administration Record will be included with transfer paperwork. Greater than 30 minutes was spent in direct patient care and coordination of care on the day of discharge.
--- NOTE | 2016-05-14 12:49 | OP ---
Olivia DUNCAN : 1965 [id number] DATE OF SERVICE: May 12, 2016 PREOPERATIVE DIAGNOSIS: Right diabetic foot infection. POSTOPERATIVE DIAGNOSIS: Right diabetic foot infection. PROCEDURE PERFORMED: RIGHT FOOT IRRIGATION AND DEBRIDEMENT. SURGEON: Naveen Bejarano M.D. SUPERVISOR [employer]: None. ANESTHESIA: Elana Bell C.R.N.A. SPECIMENS: Materials sent to the laboratory were culture swabs and tissue from a medial heel wound. ESTIMATED BLOOD LOSS: 50 mL. FLUIDS REPLACED: 1,000 mL of crystalloid. TOURNIQUET TIME: None. IMPLANTS: None. DRAINS: None. SURGICAL FINDINGS: The patient had multiple areas of necrotic tissue with purulent abscesses throughout the foot and large full thickness soft tissue loss around the medial, lateral and distal portions of his foot near the calcaneus. INDICATIONS: This is a 50-year-old gentleman who presented to the emergency department with necrotic wounds on his foot secondary to untreated diabetes. He was admitted by the hospitalist service and orthopedics was consulted. It was felt that he required debridement and staging for a potential amputation given the degree of tissue loss. Risks, benefits and alternatives were discussed with the patient and he elected to proceed. Informed consent was obtained and documented in the chart and the patient was taken to the operating room in an expedient fashion. DESCRIPTION OF PROCEDURE: The patient was identified in the pre-operative holding area where he was marked with an indelible marker by the operating surgeon. He was taken to the operating room and he was placed on supine position operating room table. General anesthesia was induced, perioperative antibiotics were administered and a well padded pre-calibrated nonsterile tourniquet was placed on his right upper thigh. He was prepped and draped in the usual sterile fashion for surgery. An operative time out was performed and confirmed by all members of the operative team. We began the procedure by debriding back necrotic areas of tissue. We encountered significant areas of large purulent abscesses subcutaneously. All areas of eschar were removed and areas of tracking sinuses were opened and drained. There was extensive tissue loss, particularly around the heel both distally and on the medial and lateral sides of the calcaneus. The foot was copiously irrigated and all areas of necrotic tissue were debrided back to stable bleeding rims. Approximately 6 L of fluid was used to thoroughly debridement and irrigate the wounds. Areas of purulent drainage were opened and unroofed and neurovascular structures were protected throughout. At this point we felt that the patient's necrotic load had been debrided appropriately and that his abscesses were appropriately drained. The open wounds were covered with Xeroform and a soft dressing of fluffs, ABDs, web roll and an BRITT bandage was applied. The drapes were removed. The patient was awakened from his anesthesia, extubated in the operating room and transferred to a stretcher and taken postoperatively to the postanesthesia care unit in stable condition. There are no observed intraoperative complications during this procedure Job [id number] Cc: [facility]
== END 2016-05-13 17:20 | disposition short-term general hospital (02) | DRG 854 ==
LOC: ED 18:40 → MS 21:19
PROVIDERS: ADMIT Family Medicine; ATTEND Family Medicine
PROC: 0J9Q0ZZ Drainage of Right Foot Subcutaneous Tissue and Fascia, Open Approach (ICD-10-PCS; principal; 2016-05-12)
DX: A41.02 Sepsis due to Methicillin resistant Staphylococcus aureus (principal); M00.072 Staphylococcal arthritis, left ankle and foot; E87.2 Acidosis; L03.115 Cellulitis of right lower limb; L02.611 Cutaneous abscess of right foot; E11.52 Type 2 diabetes mellitus with diabetic peripheral angiopathy with gangrene; R65.20 Severe sepsis without septic shock; E11.40 Type 2 diabetes mellitus with diabetic neuropathy, unspecified; D50.9 Iron deficiency anemia, unspecified; D52.9 Folate deficiency anemia, unspecified; F30.8 Other manic episodes; E11.628 Type 2 diabetes mellitus with other skin complications; B95.62 Methicillin resistant Staphylococcus aureus infection as the cause of diseases classified elsewhere; F17.210 Nicotine dependence, cigarettes, uncomplicated; E11.65 Type 2 diabetes mellitus with hyperglycemia

== ENCOUNTER 2016-06-03 06:14 | Emergency (ER) | payer OTHER ==
[2016-06-03 07:43] LABS: ABSOLUTE NEUTROPHIL COUNT 7.5 K/mm3 (1.8-7.7); BASO # 0.1 K/mm3 (0.0-0.2); BASO % 0.9 % (0.2-1.0); EOS # 0.7 (0.0-0.5); EOS % 5.3 % (0.9-2.9); HEMATOCRIT 35.9 % (32.0-52.0); HEMOGLOBIN 11.7 gm/l (14.0-18.0); IMM NEUT% 0.2 % (0-1); LYMPH # 3.5 (1.0-4.8); LYMPH % 27.4 % (15-45); MEAN CORPUSCULAR HEMOGLOBIN 30.3 pg (27.0-31.0); MEAN CORPUSCULAR HGB CONC 32.6 g/dl (33.0-37.0); MEAN PLATELET VOLUME 8.6 fl (7.4-10.4); NEUT % 58.2 % (43-75); PLATELET COUNT 537 K/mm3 (130-400); RED CELL DISTRIBUTION WIDTH 14.7 % (11.5-14.5)
[2016-06-03] MEDS ORDERED: ONDANSETRON 4 MG/2ML 2 ML VIAL ONE (07:45)
[2016-06-03] MEDS ORDERED: HYDROMORPHONE HCL 1 MG/ML SYRINGE ONE (07:45)
[2016-06-03 07:51] LABS: URINE BILIRUBIN NEGATIVE (NEGATIVE); URINE BLOOD NEGATIVE (NEGATIVE); URINE GLUCOSE (UA) NEGATIVE (NEGATIVE); URINE LEUKOCYTE ESTERASE NEGATIVE (NEGATIVE); URINE NITRITE NEGATIVE (NEGATIVE); URINE PROTEIN NEGATIVE (NEGATIVE); URINE UROBILINOGEN NORMAL (0-1 mg/dl)
[2016-06-03 07:52] LABS: URINE APPEARANCE CLEAR; URINE COLOR YELLOW
[2016-06-03 08:03] LABS: ALB/GLOB RATIO 0.6 (>1.0); ALBUMIN 3.2 gm/dL (3.5-5.7); CALCIUM 10.2 mg/dL (8.6-10.3)
[2016-06-03] MEDS: IOPAMIDOL 300 (61%) 150 ML VIAL IV ONE (09:20)
--- NOTE | 2016-06-03 09:48 | CT ---
Exam: CT abdomen and pelvis with contrast COMPARISON: None INDICATION: Fever and altered mental status. Diffuse abdominal pain. TECHNIQUE: CT examination of the abdomen and pelvis was obtained following the administration 125 mL Isovue-300 intravenous contrast. FINDINGS: Fat stranding is seen within the right upper quadrant, with the epicenter about the distal stomach and proximal duodenum. No significant fat stranding is seen about the pancreas, and overall pancreatic parenchyma is normal in amount and enhancement. Mild hepatic steatosis is suggested. Liver is otherwise unremarkable and there is no intra or extrahepatic ductal or ductal dilatation. Gallbladder is unremarkable. Spleen is mildly enlarged measuring up to 13.7 cm in maximum diameter. There is no ascites. There is moderate diffuse urinary bladder wall thickening. There is no hydronephrosis. There is a 4.8 x 4.3 x 5.0 cm mass within the left kidney with some internal calcifications which is neoplasm until proven otherwise. Kidneys otherwise unremarkable. There is no adrenal mass. There is colonic diverticulosis without evidence of diverticulitis. There is a moderate amount of stool throughout the colon. There is no bowel obstruction, free air or free intraperitoneal fluid. The appendix is not identified with confidence but could be present on axial image 63. There is a small fat-containing periumbilical hernia. There is also moderate fat-containing right inguinal hernia. Asymmetric lymph nodes are seen within the right inguinal region, more significant for number rather than size, measuring up to 10 mm in short axis diameter. Atheromatous but nonaneurysmal distal abdominal aorta and iliac arteries. Lung bases are clear. No worrisome lytic or blastic osseous lesion is identified. Facet arthropathy is present, most prominent at the lumbosacral junction on the left. 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 IMPRESSION: 1. 5.0 cm solid mass within the right kidney which is neoplasm until proven otherwise. 2. Fat stranding within the right upper quadrant which is associated with some wall thickening of the distal stomach and duodenum. Differential considerations include underlying peptic ulcer disease or groove pancreatitis. Pancreas is otherwise unremarkable. No biliary ductal dilation. 3. Moderate diffuse urinary bladder wall thickening which is of uncertain chronicity given lack of comparisons. This could reflect acute or chronic cystitis. 4. Asymmetric lymph nodes within the right inguinal region, presumably related to recently diagnosed stump infection. 5. Small fat-containing periumbilical hernia and moderate fat-containing right inguinal hernia. 6. Colonic diverticulosis without evidence of diverticulitis. 7. Hepatic steatosis. 8. Mild splenomegaly. 9. Facet arthropathy lumbar spine. Findings are discussed with Dr. Morales at 0940 hours 06/03/2016.
== END 2016-06-03 10:26 | disposition home or self-care (01) ==
LOC: ED 06:14
DX: R10.9 Unspecified abdominal pain (principal); N28.89 Other specified disorders of kidney and ureter; R11.10 Vomiting, unspecified
CPT/HCPCS: 83690; 85025; 80053; 81003; 74177; 96375; 99284 ×2; 96374; 93005; J1170; J2405; Q9967

== ENCOUNTER 2016-06-11 09:36 | Emergency (ER) | payer OTHER ==
[2016-06-11] MEDS ORDERED: CEFAZOLIN SODIUM 1 GRAM PREMIX 50 ML IV ONE (11:21)
[2016-06-11] MEDS ORDERED: HYDROCODONE/ACETAMINOPHEN 5/325MG TABLET ONE (14:23)
== END 2016-06-11 17:08 | disposition short-term general hospital (02) ==
LOC: ED 09:36
DX: T87.81 Dehiscence of amputation stump (principal); E11.9 Type 2 diabetes mellitus without complications; I10 Essential (primary) hypertension; F17.210 Nicotine dependence, cigarettes, uncomplicated; Z89.511 Acquired absence of right leg below knee; Z79.84 Long term (current) use of oral hypoglycemic drugs; W19.XXXA Unspecified fall, initial encounter; Y92.9 Unspecified place or not applicable
CPT/HCPCS: 99284 ×2; 96365; J0690; A9270

== ENCOUNTER 2016-06-26 13:01 | Outpatient (CLI) | payer OTHER | END 2016-06-26 13:02 | disposition home or self-care (01) | LOC: NC 13:01 | PROVIDERS: ATTEND Family Medicine | DX: E11.8 Type 2 diabetes mellitus with unspecified complications (principal); Z71.3 Dietary counseling and surveillance; Z68.25 Body mass index [BMI] 25.0-25.9, adult; Z89.511 Acquired absence of right leg below knee; Z87.891 Personal history of nicotine dependence ==